=== PATIENT | female | born 1990 | race Caucasian/White ===

== ENCOUNTER → 2021-05-14 00:20 | Observation (INO) | END | disposition home or self-care (01) | LOC: 1NENULAB | PROVIDERS: ADMIT Obstetrics & Gynecology; ATTEND Obstetrics & Gynecology ==

== ENCOUNTER 2021-05-19 15:55 | Inpatient (IN) ==
[2021-05-19] MEDS ORDERED: Metoclopramide 10 MG/2 ML VIAL IVP ONE (16:14)
[2021-05-19] MEDS ORDERED: Oxytocin 20 units/ LR 1000 mL 20 UNIT/1,000 ML BAG IVC ONE (16:14)
[2021-05-19] MEDS ORDERED: Ringers Solution, Lactated 1,000 ML IVC ONE (16:14)
[2021-05-19] MEDS ORDERED: CeFAZolin 2,000 MG/120 ML BAG IVPB ONE (16:14)
[2021-05-19] MEDS ORDERED: Famotidine 20 MG/2 ML VIAL IVP ONE (16:14)
[2021-05-19] MEDS ORDERED: Ringers Solution, Lactated 1,000 ML IVC SCH ×2 (16:15→22:02)
[2021-05-19] MEDS ORDERED: Ondansetron 4 MG/2 ML VIAL IVP PRN ×3 (16:19→22:02)
[2021-05-19] MEDS ORDERED: Naloxone 0.4 MG/ML INJ IVP PRN (16:19)
[2021-05-19] MEDS ORDERED: *HR* HYDROmorphone PF 0.5 MG/0.5 ML SYRINGE IVP PRN (16:35)
[2021-05-19] MEDS ORDERED: Promethazine 6.25 MG in Water for inj. (sterile) 20 ML IVPB PRN (16:35)
[2021-05-19] MEDS ORDERED: EPHEDrine 50 MG/ML VIAL ONE (16:47)
[2021-05-19] MEDS ORDERED: Ketorolac 30 MG/ML VIAL ONE (16:47)
[2021-05-19] MEDS ORDERED: Ondansetron 4 MG/2 ML VIAL ONE (16:47)
[2021-05-19] MEDS ORDERED: *HR* Morphine Sulfate/PF 10 MG/10 ML AMPUL ONE (16:47)
[2021-05-19] MEDS ORDERED: *HR* Phenylephrine 10 MG/ML VIAL ONE (16:47)
[2021-05-19] MEDS ORDERED: *HR* FentaNYL (PF) 100 MCG/2 ML VIAL ONE (16:47)
[2021-05-19 16:52] LABS: Basophils % 0.3 %; Eosinophils # 0.1 K/mcL (0.0-0.6); Eosinophils % 0.9 %; Hematocrit 34.7 % (35.3-44.9); Immature Granulocytes % 0.6 % (0-4); Lymphocytes # 2.3 K/mcL (0.6-4.6); Lymphocytes % 23.3 %; Mean Corpuscular HGB Conc 34.6 g/dL (31.6-35.5); Mean Corpuscular Volume 95.3 fL (83.0-100.0); Mean Platelet Volume 9.5 fL (9.4-12.4); Monocytes # 0.7 K/mcL (0.0-1.3); Monocytes % 6.8 %; Neutrophils # 6.6 K/mcL (1.6-8.9); Platelet Count 247 K/mcL (140-400); Red Blood Count 3.64 M/mcL (3.82-4.97); Red Cell Distribution Width 12.2 % (11.5-14.5); Segmented Neutrophils % 68.1 %; White Blood Count 9.7 K/mcL (4.3-11.1)
[2021-05-19 17:08] LABS: Amphetamine Screen,Urine Negative ng/mL (Cutoff=1000); Barbiturate Screen,Urine Negative ng/mL (Cutoff=200); Benzodiazepines Screen,Urine Negative ng/mL (Cutoff=200); Cannabinoid Screen,Urine Negative ng/mL (Cutoff = 50); Cocaine Screen,Urine Negative ng/mL (Cutoff= 300); Opiate Screen,Urine Negative ng/mL (Cutoff=300); Phencyclidine Screen,Urine Negative ng/mL (Cutoff=25)
[2021-05-19] MEDS ORDERED: Acetaminophen IV 1,000 MG/100 ML BAG IVPB ONE (17:31)
[2021-05-19 17:38] LABS: Influenza A PCR Negative (Negative); Influenza B PCR Negative (Negative); Resp. Syncytial Virus PCR Negative (Negative)
[2021-05-19 17:42] LABS: SARS-CoV-2 by PCR (In House) Negative (Negative)
[2021-05-19] MEDS ORDERED: Rho Immune Globulin 1,500 UNIT SYRINGE IM ONE (22:02)
[2021-05-19] MEDS ORDERED: Metoclopramide 10 MG/2 ML VIAL IVP PRN (22:02)
[2021-05-19] MEDS ORDERED: Oxytocin 20 units/ LR 1000 mL 20 UNIT/1,000 ML BAG IVC SCH ×2 (22:02)
[2021-05-19] MEDS ORDERED: *HR* OxyCODONE Immed Rel 5 MG TABLET PO PRN (22:02)
[2021-05-20] MEDS: Ibuprofen 600 MG TABLET PO SCH ×2 (05:28→21:28)
[2021-05-20 06:27] LABS: Basophils % 0.2 %; Eosinophils % 0.1 %; Hematocrit 33.2 % (35.3-44.9); Hemoglobin 11.4 g/dL (11.5-15.4); Immature Granulocytes % 0.6 % (0-4); Lymphocytes # 1.5 K/mcL (0.6-4.6); Lymphocytes % 14.6 %; Mean Corpuscular HGB Conc 34.3 g/dL (31.6-35.5); Mean Corpuscular Hemoglobin 32.7 pg (28.0-33.3); Mean Corpuscular Volume 95.1 fL (83.0-100.0); Mean Platelet Volume 9.6 fL (9.4-12.4); Monocytes # 0.8 K/mcL (0.0-1.3); Monocytes % 7.4 %; Neutrophils # 7.9 K/mcL (1.6-8.9); Platelet Count 243 K/mcL (140-400); Red Blood Count 3.49 M/mcL (3.82-4.97); Red Cell Distribution Width 12.4 % (11.5-14.5); Segmented Neutrophils % 77.1 %; White Blood Count 10.3 K/mcL (4.3-11.1)
[2021-05-20] MEDS: Simethicone 80 MG TAB.CHEW PO PRN (10:00)
[2021-05-20] MEDS: Acetaminophen 325 MG TABLET PO SCH ×2 (10:01→21:28)
[2021-05-20] MEDS: Prenatal Vit/FA 1 EACH TABLET PO SCH (10:01)
[2021-05-21] MEDS: Acetaminophen 325 MG TABLET PO SCH ×2 (03:51→05:20)
[2021-05-21] MEDS: Ibuprofen 600 MG TABLET PO SCH ×3 (03:52→05:20)
[2021-05-21 07:41] VITALS: BP 109/78; PULSE 70; TEMP 97.9; O2SAT 100
[2021-05-21] MEDS: Simethicone 80 MG TAB.CHEW PO PRN (08:34)
[2021-05-21] MEDS: Prenatal Vit/FA 1 EACH TABLET PO SCH (08:34)
== END 2021-05-21 14:33 | disposition home or self-care (01) | DRG 785 ==
LOC: 1NENULAB 15:55 → 1NENUOBS 22:00
PROVIDERS: ADMIT Obstetrics & Gynecology; ATTEND Obstetrics & Gynecology